=== PATIENT | male | born 1990 | race Caucasian/White ===

== ENCOUNTER 2022-01-21 22:17 | Emergency (ER) | payer SELFPAY ==
[2022-01-20] MEDS: IV RINGERS SOLUTION,LACTATED 1,000 ML IV ONE (22:47)
[~2022-01-21] VITALS: Ht 180.3 cm; Wt 125.0 kg
--- NOTE | 2022-01-21 22:33 | PHYS DOC ---
Adult General Chief Complaint Chief Complaint: DIZZY/LIGHT HEADED HPI HPI Patient is a 31-year-old male with a past medical history of hypertension on metoprolol tartrate 25 mg twice daily dosing who presents with a chief complaint of lightheadedness about an hour after taking his medicine. States he actually has not taken it in several weeks and decided to start taking it again today. States he took both doses at the same time thinking this would be better somehow. States that about an hour or so after that he started feeling lightheaded. States that the only medicines that he took today. Denies any other alcohol or drug use. Denies SI, HI or hallucinations. States he is ot herwise been healthy, eating and drinking normally for him. States he is making urine and stool normally for him. Review of Systems Review of Systems Review of systems otherwise unremarkable except noted in HPI Physical Exam Physical Exam Constitutional: Well developed, well nourished, no acute distress, non-toxic appearance. [] HENT: Normocephalic, atraumatic, bilateral external ears normal, oropharynx moist, no oral exudates, nose normal. [] Eyes: conjunctiva normal, no discharge. [] Neck: Normal range of motion, no tenderness, supple, no stridor. [] Cardiovascular:Heart rate regular rhythm, no murmur [] Lungs & Thorax:No respiratory distress, bilateral breath sounds clear to auscultation [] Abdomen: soft, no tenderness, no masses, no pulsatile masses. [] Skin: Warm, dry, no erythema, no rash. [] Extremities: No tenderness, no cyanosis, no clubbing, ROM intact, no edema. [] Neurologic: Alert and oriented X 3, normal motor function, normal sensory function, able to sit, stand and walk without issue, no focal deficits noted. [] Psychologic: Affect normal, judgement normal, mood normal. [] EKG EKG [] Radiology/Procedures Radiology/Procedures [] Heart Score C/O Chest Pain: No Risk Factors: Risk Factors: DM, Current or recent (<one month) smoker, HTN, HLP, family history of CAD, obesity. Risk Scores: Risk Factors: DM, Current or recent (<one month) smoker, HTN, HLP, family history of CAD, obesity. Course & Med Decision Making Course & Med Decision Making Patient is a 31-year-old male who presents after taking 2 of his 25 mg metoprolol tartrate and began feeling lightheaded about an hour or so after Vital signs not concerning her blood pressure on the soft side. Physical exam noted above. Placed on the monitor with IV access established and IV fluid began. EKG with rate of 78, QRS of 120, QTc of 469 with no STEMI but questionable ST depressions in V1 V2 and V3 with some T wave inversions in the same and lateral leads suggestive of possible ischemia. Initial high-sensitivity troponin of 110 chest x-ray with some cardiomyopathy. Repeat EKGs at their little fluid with a rate of 70, QRS of 122, QTc 474, no change otherwise. Repeat troponin of 101. BNP of greater than 1500. Creatinine at 1.5. Talk screen with methamphetamine. Given patient's reported history of pulmonary hypertension and ischemia on EKG, troponin leak, soft blood pressures and chest x-ray history suspicious for ischemic cardiomyopathy secondary to possibly methamphetamine use on top of pulmonary hypertension. Discussed all findings with patient. Recommended admission for continued evaluation and treatment. Patient accepted to [facility]. Patient grateful, verbalized understanding and agreed with plan of discharge. Dragon Disclaimer Dragon Disclaimer This electronic medical record was generated, in whole or in part, using a voice recognition dictation system. Departure Departure: Impression: Primary Impression: Adverse effect of beta-yossi Additional Impressions: Ischemic cardiomyopathy Pulmonary hypertension Elevated troponin MONICA (acute kidney injury) Methamphetamine abuse Disposition: 01 HOME / SELF CARE / HOMELESS Condition: STABLE Referrals: AI SCALES MD Patient Instructions: Nontoxic Ingestion, Sedative Ingestion Additional Instructions: Thank you for coming into the emergency department today and allowing us to take care of you. Please read the attached information carefully to go over things we discussed. Please contact your primary care physician for second morning to update on your ED visit and discuss restarting your blood pressure medicine at an appropriate dose/scheduling times daily. Please only take your medications as prescribed to avoid serious health risks such as severe illness, disability and . Please come back to the ED with new or concerning symptoms as discussed. Problem Qualifiers QUOC DAMIAN MD Jan 21, 2022 22:33
[2022-01-21] MEDS: IV RINGERS SOLUTION,LACTATED 1,000 ML IV ONE (23:51)
[2022-01-22] MEDS ORDERED: IV RINGERS SOLUTION,LACTATED 1,000 ML IV ONE (00:30)
[2022-01-22 00:50] LABS: CALCIUM 8.9 mg/dL (8.5-10.1); CREATININE 1.5 mg/dL (0.7-1.3); GFR 53.9; POTASSIUM 3.9 mmol/L (3.5-5.1)
[2022-01-22 00:56] LABS: ALBUMIN 3.7 g/dL (3.4-5.0); ALBUMIN/GLOBULIN RATIO 1.3 (1.0-1.7); MAGNESIUM 2.1 mg/dL (1.8-2.4); TOTAL BILIRUBIN 1.4 mg/dL (0.2-1.0); TOTAL PROTEIN 6.5 g/dL (6.4-8.2)
--- NOTE | 2022-01-22 01:26 | RAD ---
EXAMINATION: XR CHEST 1V CLINICAL HISTORY: Lightheaded, dizziness. EXAM DATE/TIME: 01/22/2022 12:35 AM COMPARISON: None FINDINGS: Lines, Tubes, and Devices: None. Cardiomediastinal Silhouette: Prominent cardiac silhouette. Lungs and Pleura: No evidence of focal airspace consolidation or pleural effusion. Pulmonary vasculat ure unremarkable. Bones and Soft Tissues: No acute osseous abnormality. IMPRESSION: Prominent cardiac silhouette, compatible with cardiomegaly versus pericardial effusion. Electronically signed by: Edd Corrales DO (01/22/2022 1:23 AM) [facility]
[2022-01-22 01:36] LABS: BASO % 1 % (0-3); EOS # 0.1 x10^3/uL (0.0-0.7); EOS % 1 % (0-3); HEMATOCRIT 48.2 % (39.0-53.0); HEMOGLOBIN 15.8 g/dL (13.0-17.5); LYMPH % 35 % (24-48); MEAN CORPUSCULAR HEMOGLOBIN 33 pg (25-35); MEAN CORPUSCULAR HGB CONC 33 g/dL (31-37); MEAN CORPUSCULAR VOLUME 99 fL (79-100); MONO # 0.5 x10^3/uL (0.0-1.1); MONO % 9 % (0-9); NEUT # 3.2 x10^3uL (1.8-7.7); NEUT % 55 % (31-73); PLATELET COUNT 107 x10^3/uL (140-400); RED BLOOD COUNT 4.85 x10^6/uL (4.30-5.70); RED CELL DISTRIBUTION WIDTH 14.8 % (11.5-14.5); WHITE BLOOD COUNT 5.8 x10^3/uL (4.0-11.0)
[2022-01-22] MEDS ORDERED: ASPIRIN CHEWABLE 81 MG TABLET. PO ONE (02:00)
[2022-01-22 02:11] LABS: BARBITURATES NEG (NEG); BENZODIAZEPINES NEG (NEG); CANNABINOIDS NEG (NEG); COCAINE NEG (NEG); METHADONE NEG (NEG); OPIATES NEG (NEG); PHENCYCLIDINE NEG (NEG)
[2022-01-22 02:27] LABS: AMPHETAMINE/METHAMPHETAMINE POS (NEG)
[2022-01-22] MEDS ORDERED: START PACK - traMADol 1 STARTPACK TABLET PO ONE (02:45)
[2022-01-22 02:53] LABS: CLARITY,URINE CLEAR; COLOR,URINE YELLOW; GLUCOSE,URINE NEG (NEG)
[2022-01-22 02:54] LABS: BACTERIA,URINE FEW /HPF (0-FEW); NITRITE,URINE NEG (NEG); SQUAMOUS EPITHELIAL CELL,UR MANY /LPF
--- NOTE | 2022-01-22 03:54 | EKG ---
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
--- NOTE | 2022-01-22 04:01 | EKG ---
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
[2022-01-22 04:11] VITALS: BP 146/73
[2022-01-22] MEDS ORDERED: CONTRAST GIVEN. MC PRN (04:15)
[2022-01-22] MEDS ORDERED: diphenhydrAMINE 50 MG/ML VIAL IVP ONE (04:30)
[2022-01-22] MEDS ORDERED: KETOROLAC 15 MG/ML VIAL. IVP ONE (04:30)
[2022-01-22] MEDS ORDERED: IOHEXOL 350 MG/ML 100 ML VIAL. IV ONE (04:30)
--- NOTE | 2022-01-22 05:04 | RAD ---
EXAMINATION: CTA CHEST CLINICAL HISTORY: Shortness of breath, pulmonary hypertension. Technique: Spiral CT acquisition of the chest from the thoracic inlet to the upper abdomen following IV contrast with coronal and sagittal reformatted images also provided for review. 3D maximum intensi ty projection images also performed. CT Dose Reduction Employed: One or more of the following individualized dose reduction techniques wer e utilized for this examination: 1. Automated exposure control 2. Adjustment of the mA and/or kV ac cording to patient size 3. Use of iterative reconstruction technique. COMPARISON: Chest radiograph same day FINDINGS: Nonideal opacification of the pulmonary arterial system somewhat limits evaluation. Pulmonary Vasculature: No evidence of main, lobar, or segmental pulmonary arterial thrombus. Lung Parenchyma, Pleura, and Airways: No focal consolidation. Bilateral dependent subsegmental atelec tasis. No pleural effusion. Central airways patent. Lower Neck, Lymph Nodes, and Mediastinum: Visualized thyroid gland within normal limits. No mediastin al, hilar, or axillary lymphadenopathy. Heart, Pericardium, and Thoracic Vessels: Moderate cardiomegaly with predominant right heart enlargem ent. Mild pericardial effusion. Thoracic aorta within normal limits. No coronary artery atherosclerot ic calcifications are noted, although the study is not optimized for coronary assessment. Bones and Soft Tissues: Multilevel thoracolumbar degenerative changes. Upper Abdomen: Reflux of contrast into the IVC and hepatic veins. Mild perihepatic and perisplenic as cites. Cholelithiasis with thickened hypodense gallbladder bey, nonspecific but can be seen seconda ry to congestive failure. IMPRESSION: No evidence of main, lobar, or segmental pulmonary embolism. Moderate cardiomegaly with evidence of right heart dysfunction. Mild pericardial effusion and mild perihepatic and perisplenic ascites, correlate for volume overload . Cholelithiasis with thickened hypodense gallbladder bey, possibly related to volume overload. If hi gh clinical concern for acute cholecystitis, right upper quadrant ultrasound could be obtained for fu rther evaluation. Electronically signed by: Edd Corrales DO (01/22/2022 5:01 AM) [facility]
== END 2022-01-22 05:14 | disposition home or self-care (01) ==
LOC: ER 22:17
DX: N17.9 Acute kidney failure, unspecified (principal); T44.7X5A Adverse effect of beta-adrenoreceptor antagonists, initial encounter; I25.5 Ischemic cardiomyopathy; I27.20 Pulmonary hypertension, unspecified; R77.8 Other specified abnormalities of plasma proteins; F15.10 Other stimulant abuse, uncomplicated; Y92.89 Other specified places as the place of occurrence of the external cause
CPT/HCPCS: 36415; 71045; 71275; 80053; 80307; 81001; 82803; 83735; 83880; 84484; 85025; 93005; 96361; 96374; 96375; 99285; J1200; J1885; J7120; Q9967